=== PATIENT | male | born 1940 | race Caucasian/White ===

== ENCOUNTER 2016-06-28 23:30 | Observation (INO) | payer MEDICARE, BC ==
[2016-06-29 00:55] LABS: HEMOGLOBIN 15.8 gm/dl (14.0-17.5); RED BLOOD COUNT 4.81 M/UL (4.20-5.50); WHITE BLOOD COUNT 10.3 K/UL (4.5-11.0)
[2016-06-29 01:14] LABS: BUN/CREATININE RATIO 15 (0-10)
[2016-06-29 07:05] LABS: HEMOGLOBIN 15.3 gm/dl (14.0-17.5); RED BLOOD COUNT 4.65 M/UL (4.20-5.50)
[2016-06-29 07:22] LABS: BUN/CREATININE RATIO 17 (0-10)
[2016-06-29] MEDS ORDERED: PLAVIX 75 MG TA75 MG PO (11:42)
[2016-06-29] MEDS ORDERED: PROTONIX40 MG PO (11:43)
[2016-06-29] MEDS ORDERED: HYDROCHLOROTH12.5 MG PO (11:44)
== END 2016-06-29 18:50 | disposition home or self-care (01) ==
LOC: ER1 23:30 → ZEROF 06-29 02:58
PROVIDERS: Internal Medicine; Student in an Organized Health Care Education/Training Program; ADMIT Family Medicine
DX: R07.89 Other chest pain (principal); R20.8 Other disturbances of skin sensation; I10 Essential (primary) hypertension; E78.5 Hyperlipidemia, unspecified; I25.10 Atherosclerotic heart disease of native coronary artery without angina pectoris; M19.90 Unspecified osteoarthritis, unspecified site; Z85.038 Personal history of other malignant neoplasm of large intestine; Z87.891 Personal history of nicotine dependence; Z79.82 Long term (current) use of aspirin; Z79.899 Other long term (current) drug therapy; Z95.1 Presence of aortocoronary bypass graft; Z95.5 Presence of coronary angioplasty implant and graft
CPT/HCPCS: 36415; 70450; 71010; 80048; 80053; 80061; 80307; 81001; 82550; 82553; 83735; 83874; 83880; 84439; 84443; 84484; 85025; 85379; 93005; 96374; 96376; 99285; G0378; J0360; J1650